=== PATIENT | female | born 2000 | race Caucasian/White ===

== ENCOUNTER 2019-09-12 06:56 | Inpatient (IN) | payer BC, SELFPAY ==
[2019-09-12] VITALS (92 sets, daily range): BP systolic 91–137; BP diastolic 59–94; PULSE 62–132; RESP 16; TEMP 36.6–37; O2SAT 98–100; BMI 24.5
--- NOTE | 2019-09-12 06:56 | LDADM ---
This patient, Marie Goncalves, was admitted to Labor/Delivery/Recovery 109 on 09/12/19 at 06:56. Plans for labor, pain management and were discussed with patient. Patient/family oriented to hospital policies and general routines including ID bracelet, bed and alarms, visiting hours, pain management, procedures, bathroom and other care routines, personal items, smoking policy, room service/diet and guest tray routines, security routines, and visiting hours. Patient/Family are encouraged to report perceived risks to care and to ask questions if they do not understand what they are told or what they should do. See OBIX for further documentation.
[2019-09-12 07:43] LABS: Basophils Percent Auto 0.4 % (0.2-1.2); Eosinophils Absolute Auto 0.1 K/mm3 (0-0.3); Eosinophils Percent Auto 1.1 % (0-4.4); Hematocrit 29.5 % (37.0-47.0); Hemoglobin 9.9 g/dL (12.0-15.0); Immature Granulocyte Absolute 0.13 K/mm3 (0.00-0.031); Immature Granulocyte Percent A 1.6 % (0-0.5); Lymphocytes Absolute Auto 1.92 K/mm3 (0.9-3.2); Lymphocytes Percent Auto 24.4 % (18.3-44.2); Mean Corpuscular HGB Conc 33.6 g/dl (32-36); Mean Corpuscular Hemoglobin 29.7 pg (26-34); Mean Corpuscular Volume 88.6 fl (80-100); Mean Platelet Volume 10.3 fl (7.4-10.4); Monocytes Absolute Auto 0.7 K/mm3 (0.1-0.6); Monocytes Percent Auto 8.5 % (2.6-8.5); Platelet Count Result 181 k/mm3 (150-375); Red Blood Count 3.33 M/mm3 (4.2-5.4); Red Cell Distribution Width 12.5 % (11.5-14.5); White Blood Count 7.9 K/mm3 (4.5-10.0)
[2019-09-12] MEDS: AMPICILLIN 2 GM/NS 100 ML 2 GM/100 ML BAG IVPB (07:53)
[2019-09-12] MEDS: OXYTOCIN 30 UNITS/NS 500 ML 30 UNITS/500 ML BAG 6 UNITS IV CONT (07:54)
[2019-09-12] MEDS: LACTATED RINGERS 1,000 ML 125 ML IV CONT ×2 (07:54→10:42)
--- NOTE | 2019-09-12 08:45 | WPDOBADMIT ---
Obstetrics - Admit Note Admission Note: record reviewed. Additions to the history and/or subsequent changes in the physical findings follow. 19 y/o G1 at 39 2/7 weeks here for induction of labor. GBS pos. uncomplicated. AVSS NST reactive TOCO: contractions irregularly ABD soft, nontender, gravid, vertex EXT nontender Cervix 3/50/-2. AROM with clear fluid. Vertex. A: IUP at term with favorable cervix, desiring induction of labor. P: Oxytocin. Anticipate .
[2019-09-12 08:50] LABS: Rapid Plasma Reagin Non-Reactive (NonReactive)
--- NOTE | 2019-09-12 10:08 | WPDANESEPP ---
Anes - Eval Pre Procedure Procedure: Labor epidural Date/Time: 09/12/19 10:08 Surgeon: Syed Morrison M.D. Preop Diagnosis: pain during labor Pre Op Diagnosis: Induction of Labor Patient Data Age: 19 Gender: F Height: 1.73 m Weight: 73.25 kg Last Vital Signs Temp 36.6 C 09/12/19 07:58 Pulse 80 09/12/19 10:00 BP 117/74 09/12/19 10:00 Allergies Allergy/AdvReac Type Severity Reaction Status Date / Time No Known Allergies Allergy Verified 08/23/19 12:41 Home Medications Medication Instructions Recorded Confirmed Type PNV cmb#95-ferrous fumarate-FA 1 tablet PO DAILY 08/23/19 09/12/19 History [] Laboratory Tests 09/12/19 09/12/19 09/12/19 07:33 07:33 07:33 WBC 7.9 K/mm3 K/mm3 (4.5-10.0) RBC 3.33 M/mm3 L M/mm3 (4.2-5.4) Hgb 9.9 g/dL L g/dL (12.0-15.0) Hct 29.5 % L % (37.0-47.0) MCV 88.6 fl fl (80-100) MCH 29.7 pg pg (26-34) MCHC 33.6 g/dl g/dl (32-36) RDW 12.5 % % (11.5-14.5) Plt Count 181 k/mm3 k/mm3 (150-375) MPV 10.3 fl fl (7.4-10.4) Immature Gran % (Auto) 1.6 % H % (0-0.5) Neut % (Auto) 64.0 % % (45.5-73.1) Lymph % (Auto) 24.4 % % (18.3-44.2) [place] % (Auto) 8.5 % % (2.6-8.5) Eos % (Auto) 1.1 % % (0-4.4) Baso % (Auto) 0.4 % % (0.2-1.2) Lymph # (Auto) 1.92 K/mm3 K/mm3 (0.9-3.2) [place] # (Auto) 0.7 K/mm3 H K/mm3 (0.1-0.6) Eos # (Auto) 0.1 K/mm3 K/mm3 (0-0.3) Baso # (Auto) 0.0 K/mm3 K/mm3 (0.0-0.1) Abs Immat Gran (auto) 0.13 K/mm3 H K/mm3 (0.00-0.031) Absolute Neuts (auto) 5.0 K/mm3 K/mm3 (1.3-6.7) Absolute Nucleated RBC 0.0 K/mm3 K/mm3 (0.0-0.012) Nucleated RBC % 0.0 % % (0.0-0.2) RPR Non-reactive (NonReactive) Blood Type A Positive Antibody Screen Negative Patient hx anesthesia problems: none Family hx anesthesia problems: none [facility] Family History Family History (Updated 08/23/19 @ 12:42 by Mariam Acosta RN) Other Unknown family medical history Social History Social History Smoking status: Never smoker Second hand tobacco smoke exposure: No Substance use: never Spiritual care concerns: No Exam Day of Procedure 09/12/19 10:08
[2019-09-12] MEDS: AMPICILLIN 1 GM/NS 50 ML 1 GM/50 ML BAG IVPB (11:54)
--- NOTE | 2019-09-12 11:57 | PM.OBPNLAB ---
Pain Control Date/time seen: 09/12/19 11:57 Comments: Comfortable with epidural. Pelvic Exam Dilation (cm): 6 Effacement (%): 80 station: -1 Contractions Contraction frequency: 3 Contraction pattern: Regular Status status: Category l Assessment and Plan Comments: Continue labor.
--- NOTE | 2019-09-12 16:03 | P.PCNOB_ITS ---
OB - Delivery Note Procedure Delivery date: 09/12/19 Procedure: Induction of labor with Induction method: AROM and per pitocin protocol Delivery monitor: external FHT and external uterine Route of delivery: Laceration description: Perineal - 2nd Degree Delivery repair: vicryl (3-0) Specimen: Yes (cord blood) Estimated blood loss (mL): 330 Anesthesia type: Epidural Disposition: PACU Complications: None Narrative: 19 y/o at 39 2/7 weeks gestation who presented to the hospital for induction of labor. Oxytocin was administered intravenously. Amniotomy was performed with return of clear fluid. She received an epidural for pain control. Her labor progressed and her cervix dilated completely. She pushed with good effort and delivered the infant's head to the perineum, followed by the body. The nose and mouth were bulb suctioned. After a delay, the cord was clamped and cut. The infant was handed off the field. Cord blood was collected. The placenta delivered spontaneously and was grossly normal in appearance. The usual 3 vessel cord was noted. A second degree midline perineal laceration was sustained. This was reapproximated using 3 0 Vicryl in the usual layered fashion. Excellent hemostasis resulted as did excellent reapproximation of the normal anatomy. Needle and instrument counts were correct. The patient was taken to recovery room in stable condition. The went to the nursery in stable condition. I was present and scrubbed for the entire delivery. [place] Baby Date of : 09/12/19 Time of : 15:47 Weeks of gestation at delivery: 39 Infant gender: Female Weight (pounds): 8 Weight (ounces): 1 presentation: vertex position: Left Occiput Anterior Placenta delivery description: Spontaneous and Normal Configuration cord vessel description: 3 Vessels score one minute: 9 score five minutes: 9
--- NOTE | 2019-09-12 16:05 | PM.OBDSVD ---
DS: Admitting Diagnosis Admitting Diagnosis Admitting Diagnosis: IUP at 39 2/7 weeks Favorable cervix GBS colonization <Syed Morrison MD - Last Filed: 09/12/19 16:07> DS: Discharge Diagnosis Discharge Diagnosis (1) (normal spontaneous vaginal delivery): Code(s): O80 - Encounter for full-term uncomplicated delivery <Syed Morrison MD - Last Filed: 09/12/19 16:07> Status: Acute <Syed Morrison MD - Last Filed: 09/12/19 16:07> (2) GBS (group B Streptococcus carrier), +RV culture, currently : Code(s): O99.820 - Streptococcus B carrier state complicating <Syed Morrison MD - Last Filed: 09/12/19 16:07> Status: Acute <Syed Morrison MD - Last Filed: 09/12/19 16:07> OB - DS: Summary OB Procedures : None <Naresh Segovia MD - Last Filed: 09/14/19 10:12> OB Procedures Intrapartum: Spontaneous Vag Delivery <Naresh Segovia MD - Last Filed: 09/14/19 10:12> OB Procedures: : None <Naresh Segovia MD - Last Filed: 09/14/19 10:12> Time Spent with Patient Time attestation: Total time spent providing and/or coordinating discharge services: <Syed Morrison MD - Last Filed: 09/12/19 16:07> DS: Data Data Completed and Pending Labs on day of discharge: Labs from last 24 hours 09/12/19 09/12/19 09/12/19 07:33 07:33 07:33 WBC 7.9 RBC 3.33 L Hgb 9.9 L Hct 29.5 L MCV 88.6 MCH 29.7 MCHC 33.6 RDW 12.5 Plt Count 181 MPV 10.3 Immature Gran % (Auto) 1.6 H Neut % (Auto) 64.0 Lymph % (Auto) 24.4 [place] % (Auto) 8.5 Eos % (Auto) 1.1 Baso % (Auto) 0.4 Lymph # (Auto) 1.92 [place] # (Auto) 0.7 H Eos # (Auto) 0.1 Baso # (Auto) 0.0 Abs Immat Gran (auto) 0.13 H Absolute Neuts (auto) 5.0 Absolute Nucleated RBC 0.0 Nucleated RBC % 0.0 RPR Non-reactive Blood Type A Positive Antibody Screen Negative <Syed Morrison MD - Last Filed: 09/12/19 16:07> Discharge Plan Discharge Attending physician on discharge: Syed Morrison <Syed Morrison MD - Last Filed: 09/12/19 16:07> Syed Morrison <Naresh Segovia MD - Last Filed: 09/14/19 10:12> Discharging Clinician: Syed Morrison <Syed Morrison MD - Last Filed: 09/12/19 16:07> Syed Morrison <Naresh Segovia MD - Last Filed: 09/14/19 10:12> Patient Disposition: Home, Self-Care <Syed Morrison MD - Last Filed: 09/12/19 16:07> Activity: pelvic rest <Syed Morrison MD - Last Filed: 09/12/19 16:07> pelvic rest <Naresh Segovia MD - Last Filed: 09/14/19 10:12> Diet: regular <Syed Morrison MD - Last Filed: 09/12/19 16:07> regular <Naresh Segovia MD - Last Filed: 09/14/19 10:12> Discharge Instructions: Call or return if temperature above 100.4? F, increased abdominal pain, increased vaginal bleeding or any new problems. <Syed Morrison MD - Last Filed: 09/12/19 16:07> Stand Alone Forms: General Discharge Information <Syed Morrison MD - Last Filed: 09/12/19 16:07> Follow-up/Referrals: Syed Morrison MD [Physician] - (6 weeks) <Syed Morrison MD - Last Filed: 09/12/19 16:07> Discharge Medications: New ibuprofen 600 mg tablet 600 mg PO Q6H PRN (Reason: cramps) Qty: 30 RF: 0 ferrous sulfate 325 mg (65 mg iron) tablet 325 mg PO DAILY Qty: 30 RF: 0 No Action PNV cmb#95-ferrous fumarate-FA [] 28 mg iron- 800 mcg Tablet 1 tablet PO DAILY RF: 0 <Syed Morrison MD - Last Filed: 09/12/19 16:07> Date of admission: 09/12/19 06:56 <Syed Morrison MD - Last Filed: 09/12/19 16:07> Primary Care Provider: PHYSICIAN,CLINICAL ASSESSMENT MANAGER <Syed Morrison MD - Last Filed: 09/12/19 16:07> Admitting Provider: Syed Morrison <Syed Morrison MD - Last Filed: 09/12/19 16:07> Att
[2019-09-12] MEDS: OXYTOCIN 30 UNITS/NS 500 ML 30 UNITS/500 ML BAG 125 UNITS IV CONT (16:50)
[2019-09-12] MEDS: LANOLIN (LANSINOH) 7.5 GM CREAM 1 APPLIC TOPICAL (18:47)
[2019-09-12] MEDS: WITCH HAZEL 40 PADS 1 PAD TOPICAL (18:47)
[2019-09-12] MEDS: BENZOCAINE 20% AER SPR (*SP) 56 GM CAN 1 SPRAY TOPICAL (18:47)
--- NOTE | 2019-09-12 18:58 | OBPPTRN ---
Patient transferred to post room #280 via wheelchair. Support person present. Oriented to unit, room, information board, rooming in, admission packet and security measures. Patient verbalizes understanding. with patient.
[2019-09-12] MEDS: IBUPROFEN 600 MG TABLET PO (20:52)
[2019-09-12] MEDS: ACETAMINOPHEN 325 MG TABLET 650 MG PO (23:10)
[2019-09-13] MEDS: IBUPROFEN 600 MG TABLET PO ×2 (04:43→15:57)
[2019-09-13 05:27] LABS: Hematocrit 28.9 % (37.0-47.0); Hemoglobin 9.5 g/dL (12.0-15.0)
[2019-09-13 07:50] VITALS: BP 109/62; PULSE 88; RESP 18; TEMP 36.4; O2SAT 98
[2019-09-13] MEDS: ACETAMINOPHEN 325 MG TABLET 650 MG PO (10:43)
[2019-09-13] MEDS: DOCUSATE SODIUM 100 MG CAPSULE PO ×2 (10:44→15:57)
[2019-09-13] MEDS: MULTIVIT/MIN/PREN/FOL AC/IRON TABLET 1 TAB PO (10:44)
[2019-09-13] MEDS: POLYSACCHARIDE IRON COMPLEX 150 MG CAPSULE PO ×2 (10:44→15:57)
--- NOTE | 2019-09-13 13:15 | PC.NURSE ---
Consult with pt., mother reports is eagerly latching without difficulties or discomfort. Mother states does not feed long, she will fall asleep in 10 minutes of feeding. Reviewed feedings can be from 10 to 50 minutes. Suggested mother stimulate infant while feeding to keep awake and feeding. Requested mother call out next feeding.
--- NOTE | 2019-09-13 13:20 | PM.OBPNVD ---
OB - PN: Subj Subjective Date/time seen: 09/13/19 13:20 Narrative: Pain OK. OB - PN: Obj Data Labs CBC & Chem 7: 09/13/19 04:48 Labs: Laboratory Results - last 24 hr 09/13/19 04:48 Hgb 9.5 L Hct 28.9 L OB - PN A/P Plan Comments: A: PPD#1, doing well. P: Routine care. Plan home tomorrow. Exam Psych: Other: AVSS ABD soft, nontender, fundus firm EXT nontender
--- NOTE | 2019-09-13 13:50 | PC.NURSE ---
Mother called out for observation of feeding. is at breast, mother is able to independently latch with appropriate positioning/alignment in cradle. Reviewed infant feeding cues, frequencies, duration of feedings, feeding elimination flow sheet, and signs of adequate intake. Reviewed positioning/alignment, holding breast and asymmetrical latch on. Infant nursed eagerly, with steady draws and frequent swallowing noted. Reviewed signs of a correct latch, effective nursing and suck swallow ratio. was able to maintain latch without discomfort to mother. Nipple care reviewed. Instructed mother to call out for RN assistance if she is unable to latch infant for feeding or she has discomfort with nursing. Instructed feeding should be initiated three hours from start of last feeding or if feeding cues are noted before. Mother voiced understanding of information shared.
--- NOTE | 2019-09-13 15:03 | WPDANESPN ---
Anes - Prog Note Post-Op Date/Time: 09/13/19 15:03 Cardiovascular status: normal Respiratory status: normal Airway patency: baseline Mental status: baseline Post-Op hydration status: normal Vital Signs: Last Vital Signs Temp 97.5 F L 09/13/19 07:50 Pulse 88 09/13/19 07:50 Resp 18 09/13/19 07:50 BP 109/62 09/13/19 07:50 Pulse Ox 98 09/13/19 07:50 I/O: Intake & Output 09/12/19 09/13/19 09/13/19 23:59 07:59 15:59 Intake Total 1500 240 Output Total 340 Balance 1160 240 Laboratory Tests 09/13/19 04:48 09/13/19 04:48 Hgb 9.5 L Hct 28.9 L Post-procedural complaints: none Patient Feedback: Patient satisfied with anesthetic care.
--- NOTE | 2019-09-13 15:03 | WPDANLDPN2 ---
Anes-Prog Note L&D Date/Time: 09/13/19 15:03 Comfortable throughout: labor and delivery Neuraxial method: epidural Epidural/Spinal procedure site: clean & non-tender Neuro status: Neuro function grossly intact. Cardiovascular status: normal Respiratory status: normal Airway patency: baseline Mental status: baseline Post-Op hydration status: normal Vital Signs: Last Vital Signs Temp 97.5 F L 09/13/19 07:50 Pulse 88 09/13/19 07:50 Resp 18 09/13/19 07:50 BP 109/62 09/13/19 07:50 Pulse Ox 98 09/13/19 07:50 I/O: Intake & Output 09/12/19 09/13/19 09/13/19 23:59 07:59 15:59 Intake Total 1500 240 Output Total 340 Balance 1160 240 Post-procedural complaints: none Patient feedback: Patient satisfied with anesthetic care.
[2019-09-13 19:45] VITALS: BP 116/77; PULSE 70; RESP 16; TEMP 36.8; O2SAT 99
[2019-09-14] MEDS: ACETAMINOPHEN 325 MG TABLET 650 MG PO (03:30)
[2019-09-14] MEDS: IBUPROFEN 600 MG TABLET PO (03:30)
[2019-09-14 08:25] VITALS: BP 111/72; PULSE 80; RESP 18; TEMP 37; O2SAT 97
[2019-09-14] MEDS: MULTIVIT/MIN/PREN/FOL AC/IRON TABLET 1 TAB PO (08:57)
[2019-09-14] MEDS: POLYSACCHARIDE IRON COMPLEX 150 MG CAPSULE PO (08:58)
[2019-09-14] MEDS: DOCUSATE SODIUM 100 MG CAPSULE PO (08:58)
[2019-09-14] MEDS: TETANUS,DIPHTHERIA,AC PERTUSSIS ADULT (0.5 ML) BOOSTRIX IM (10:55)
--- NOTE | 2019-09-14 11:15 | PC.NURSE ---
Observed mother verbalizes she is able to independently latch with appropriate positioning/alignment. She denies any nipple discomfort, is feeding as required and waking to feed if needed. has had at least 8 effective feedings in the past 24 hours, and is currently meeting outcomes for weight, output, jaundice and feeding frequencies. Mother states she feels confident to continue effective at home. Reviewed transition to breast milk, signs of adequate intake, and engorgement/relief. Instructed to call ICP if intake/output less than required. Reviewed regular medications mother is taking. Information provided per Kaylee. Reviewed community resources on the [facility] website and in the Mom/Baby guide. Information on outpatient services provided. Mother has no further questions at this time.
[2019-09-16 10:20] VITALS: BP 113/63; PULSE 87; RESP 20; TEMP 36.7; O2SAT 100
== END 2019-09-14 11:42 | disposition home or self-care (01) | DRG 807 ==
LOC: ANHLDR 16:06 → ANHOB2 09-14 10:25 → ANHLDR 09-15 12:26 → ANHOB2 09-15 12:26
PROVIDERS: Admitting Provider Obstetrics & Gynecology; Visit Provider Student in an Organized Health Care Education/Training Program
DX: O99.824 Streptococcus B carrier state complicating childbirth (principal); Z37.0 Single live birth; Z3A.39 39 weeks gestation of pregnancy; O70.1 Second degree perineal laceration during delivery
CPT/HCPCS: 36415; 85014; 85018; 85025; 86592; 86850; 86900; 86901; 90715; A9270; J0290; J2590; J2795; J7120